=== PATIENT | male | born 1970 | race Caucasian/White ===

== ENCOUNTER → 2017-10-09 | Day surgery (SDC) | payer OTHER ==
[~2017-10-09] MED LIST: ACET-24 PO; ASPI-320 PO; CLARITIN D PO; CLB200 PO; CLC100 PO; DIPH1TAB87 PO; IBUP-1050 PO; NAPR1TAB9 PO; ONDA-170 PO; OXYM0.0592 INTNAS; RXC5 PO
[2017-10-09 13:06] VITALS: BMI 40.0
== END | disposition home or self-care (01) ==
LOC: C.RAD 13:45
PROVIDERS: ATTEND Orthopaedic Surgery
DX: Z53.09 Procedure and treatment not carried out because of other contraindication (principal)

== ENCOUNTER 2017-11-07 09:05 | Inpatient (IN) | payer OTHER ==
[2017-10-09 13:06] VITALS: BMI 40.0
--- NOTE | 2017-10-09 13:40 | PAT Medication Instructions ---
Service Date Oct 09, 2017. Current Home Medication List Diphenhydramine Hcl (Benadryl Allergy), 50 MG PO HS PRN for RN Ibuprofen (Advil), 800 MG PO PRN Oxymetazoline Hcl (Nasal Bluefield), 2 SPRAY INTNAS HS [Claritin D], 1 TAB PO QM Medication Instructions For Your Scheduled Surgery - Check with your surgeon for instructions for: Ibuprofen (Advil), 800 MG PO PRN - Hold the following medications the morning of surgery: Diphenhydramine Hcl (Benadryl Allergy), 50 MG PO HS PRN for RN [Claritin D], 1 TAB PO QM - Take the following medications as scheduled the night before surgery: Diphenhydramine Hcl (Benadryl Allergy), 50 MG PO HS PRN for RN (if needed) Oxymetazoline Hcl (Nasal Bluefield), 2 SPRAY INTNAS HS If you have any questions please call us at [phone] or [phone] or [phone]
--- NOTE | 2017-10-09 14:17 | DIAGNOSTIC IMAGING REPORT ---
CHEST 2 VIEWS ROUTINE CLINICAL HISTORY: 46 years-old Male presenting with preoperative assessment. TECHNIQUE: PA and lateral views of the chest were obtained. COMPARISON: None. FINDINGS: Cardiomediastinal silhouette normal. Lungs and pleural spaces clear. Osseous structures normal. Upper abdomen normal. IMPRESSION: 1. No acute cardiopulmonary disease. Electronically signed by: Calvin Gutierrez M.D. 10/09/2017 2:16 PM Dictated Date/Time: 10/09/2017 2:16 PM
[2017-10-09 15:39] LABS: BASO % 0.7 %; BASO ABS # 0.05 K/uL (0-0.2); EOS % 3.7 %; EOS ABS # 0.26 K/uL (0-0.5); HEMOGLOBIN 15.8 g/dL (14.0-18.0); IG# 0.01 K/uL (0.00-0.02); LYMPH ABS # 2.55 K/uL (1.2-3.4); MEAN CORPUSCULAR HEMOGLOBIN 32.3 pg (25-34); MEAN CORPUSCULAR HGB CONC 35.1 g/dl (32-36); MEAN PLATELET VOLUME 10.3 fL (7.4-10.4); MONO % 4.8 %; MONO ABS # 0.34 K/uL (0.11-0.59); NEUT % 54.7 %; NEUT ABS # 3.88 K/uL (1.4-6.5); PLATELET COUNT 215 K/uL (130-400); RED CELL DISTRIBUTION WIDTH CV 12.3 % (11.5-14.5); RED CELL DISTRIBUTION WIDTH SD 41.5 fL (36.4-46.3); WHITE BLOOD COUNT 7.09 K/uL (4.8-10.8)
[2017-10-09 15:46] LABS: ALBUMIN 4.2 gm/dl (3.4-5.0); CALCIUM 9.4 mg/dl (8.5-10.1); CREATININE 1.08 mg/dl (0.60-1.40); POTASSIUM 4.2 mmol/L (3.5-5.1)
[2017-10-09 15:48] LABS: PTT PATIENT 27.3 SECONDS (21.0-31.0)
[2017-10-10 06:39] LABS: HEMOGLOBIN A1C 5.1 % (4.5-5.6)
--- NOTE | 2017-10-29 08:24 | History and Physical ---
History & Physical Date Oct 29, 2017. Chief Complaint Left knee pain History of Present Illness The patient is a 46 year old male with complaints of left knee pain after traumatic fall. He previously had an ACL and PCL reconstruction as well as MPFL reconstruction. He also has arthritic changes of his knee. Surgical procedures were discussed with the patient. He would like to proceed with scheduled surgery. Allergies Coded Allergies: NO KNOWN DRUG ALLERGIES (Verified Allergy, Unknown, NONE, 10/09/17) Shellfish (Verified Allergy, Unknown, ANAPHYLAXIS, 10/09/17) Home Medications Scheduled Ibuprofen (Advil), 800 MG PO PRN Oxymetazoline Hcl (Nasal Winston), 2 SPRAY INTNAS HS [Claritin D], 1 TAB PO QM Scheduled PRN Diphenhydramine Hcl (Benadryl Allergy), 50 MG PO HS PRN for RN Physical Examination Skin: warm/dry, no rash Eyes: normal inspection, EOMI ENT: normal ENT inspection Head: normocephalic, atraumatic Neck: supple, no adenopathy Respiratory/Chest: lungs clear, normal breath sounds Cardiovascular: regular rate, rhythm, no murmur Abdomen / GI: normal bowel sounds, non tender Extremities: normal inspection, + pertinent finding (surgical scars note medially and distally. (+) Lachmans, patellar shift is (+) and apprehension, Limited ROM due to pain and instability) Neurologic/Psych: no motor/sensory deficits, alert, oriented x 3 Diagnosis Left knee ACL and MPFL tears with arthritic changes of the knee. Plan of Treatment Patient is scheduled for a left knee arthroplasty with achilles tendon allograft. Risks and benefits to surgery were discussed with the patient. He understands these risks and wishes to proceed. All questions were answered to his satisfaction. He will be placed on ASA 81mg BID for DVT prophylaxis and would like to go home with OPPT.
[2017-11-07] VITALS (9 sets, daily range): BP systolic 100–141; BP diastolic 62–96; PULSE 76–106; TEMP 36.7–37.4; O2SAT 92–95; Ht 175.3 cm; Wt 122.6 kg
[~2017-11-07] VITALS: Ht 175.3 cm; Wt 122.6 kg
[2017-11-07] MEDS: TRANEXAMIC ACID INJ 1,000 MG x 2 Bags IV SCH ×4 (06:30→11:25)
[~2017-11-07 09:05] MED LIST changes: -ACET-24 PO; +ACETAMINOPHEN 500 MG TAB PO SCH; -ASPI-320 PO; +BUPIVACAINE 0.25% 30 ML VIAL ONE; +BUPIVACAINE 0.5 % 5 MG/1 ML PF 10ML VIAL ONE; +CEFAZOLIN 3000MG IV PUSH 22.5 ML IV SCH; -CLB200 PO; -CLC100 PO; +CeleBREX 200 MG CAP PO SCH; +DEXAMETHASONE 4 MG TAB PO SCH; +FAMOTIDINE 20 MG TAB PO SCH; +GABAPENTIN 900 MG PO SCH; +LACTATED RINGER'S 1000ML 1,000 ML IV SCH; +LACTATED RINGER'S 1000ML 500 ML IV SCH; +METOCLOPRAMIDE HCL 10 MG TAB PO SCH; -NAPR1TAB9 PO; -ONDA-170 PO; +ROPIVACAINE 5MG/ML 30 ML 150 MG, BUPIVACAINE 0.5% MPF INJ 30 ML, EpINEphrine HCL INJ 0.... INFIL SCH; -RXC5 PO
[2017-11-07] MEDS ORDERED: NAPR1TAB9 PO (09:55)
--- NOTE | 2017-11-07 10:31 | History & Physical Bridge Note ---
H&P Re-Evaluation Bridge Note: I have examined the patient, reviewed the History & Physical and in the interval since the performance of the History & Physical I have noted the following changes of clinical significance: No changes noted
[2017-11-07] MEDS ORDERED: MIDAZOLAM HCL 1 MG/ML 2ML VIAL ONE ×3 (10:44→11:52)
[2017-11-07] MEDS ORDERED: POVIDONE-IODINE OP SOLN 30 ML BTL ONE (11:17)
[2017-11-07] MEDS ORDERED: BACITRACIN 50000 UNIT VIAL ONE (11:17)
[2017-11-07] MEDS ORDERED: ORTHO JOINT ANESTHETIC ONE (11:17)
[2017-11-07] MEDS ORDERED: KETAMINE HCL INJ 50 MG/ML 10 ML VIAL ONE (12:46)
[2017-11-07] MEDS ORDERED: LIDOCAINE HCL 2% 2 ML VIAL (20MG/ML) ONE (12:48)
[2017-11-07] MEDS ORDERED: PROPOFOL IV EMULSION 10 MG/ML 20 ML VIAL IV ONE (12:48)
--- NOTE | 2017-11-07 14:19 | [facility] Operative Report ---
Operative Report Operative Date Nov 07, 2017. Pre-Operative Diagnosis Left arthritis, s/p ACL, PCL, MPFL reconstructions Post-Operative Diagnosis same Procedure(s) Performed L TKA and removal of hardware tibia Surgeon Dr. Calvin Ortega Punchboard Filling Machine Operator Surgeon(s) Kareem Ragsdale PA-C Estimated Blood Loss 40 Findings incompetent MCL Specimens bone and tissue Drains 2 hemovac Anesthesia Type MAC Spinal Regional Complication(s) none Disposition Recovery Room / PACU Indications The patient is a 46-year-old male who had sustained a injury to the left knee skiing. He sustained a tear of the ACL, PCL, MCL, medial patellofemoral ligament. He had undergone staged reconstructions with ACL and PCL performed in 1 setting and MPFL reconstruction performed in another. At the time of arthroscopy for the patellar surgery his ACL and PCL reconstructions were noted to be re-torn. He subsequently had continued instability in the knee and in the patella as well as progressive arthritic change in the knee that was recalcitrant to conservative measures including injection, bracing, physical therapy. He is now [id number] in the medial compartment and wishes to proceed with a total knee arthroplasty. Description of Procedure Risks benefits and alternatives of surgery including but not limited to infection, DVT, pain, stiffness, need for surgery, damage to blood vessels, damage to nerves or risks of anesthesia were discussed with the patient and they wished to proceed. The patient was identified and the laterality was confirmed and marked. They received a preoperative antibiotic as well as a spinal anesthetic and an abductor canal block. A well-padded tourniquet was applied and then the limb was prepped and draped in standard manner with ChloraPrep. The limb was exsanguinated and the tourniquet was inflated. I made an incision along the anterior aspect of the knee just medial to the midline re-utilizing his previous incisions. I sharply incised the skin then utilized Bovie electrocautery to achieve hemostasis. I made a medial parapatellar arthrotomy and mobilized the patella laterally. I then excised the anterior horns of the medial and lateral meniscus as well as the infrapatellar fat pad. I dissected distally over the tibia and identified the 2 previous interference screws within the tibia one was for the ACL reconstruction the other was for the PCL reconstruction. These plastic interference screws were removed. I then pinned into place a patient-matched distal femoral cutting guide and made my distal femoral resection. I then pinned into place the 5 in 1 femoral cutting guide. I made my anterior, posterior and chamfer cuts. I then excised the cruciates and the remaining portions of the menisci. I then pinned into place a patient- matched tibial cutting guide and made my tibial resection. I then pinned into place the tibial plate a utilizing alignment harris to confirm rotation. I then cut for the post. Utilizing a lamina instructor hairspring and I then removed posterior osteophytes off the femur. I then placed a trial femur into position and cut for the trochlear component. He had rather extreme soft tissue laxity. 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 We needed to up size to size 21 to get appropriate stability to the MCL in both extension as well as in flexion. However this point he was a bit of a flexion contracture. I remove the femoral component and released the posterior capsule. I then replaced the femoral component. We had better balancing at this point but we still had poor tracking to the patella. A lateral release was required. This seemed to both give us appropriate tracking to the patella as well as increase our extension. He had pretty good stability with the 21 poly-constraint. I then removed the trial femur and trial patella. I then sequentially reamed up to a size [address] a tibial stem component into position. I had preoperatively templated that A1 100 mm stem would be long enough to cover the regions of his previous interference screws. All the trial components were removed. The deep tissues were anesthetized with an ortho mix solution. Then with Simplex HV with gentamicin cement, I cemented my definitive components. Definitive components, [employer] 2: Femur 6 Tibia 5 with a stem of 16 x 100 mm Poly 21 constrained Patella 32 oval No Betadine soak was performed secondary to shellfish allergy. A deep drain was placed. The arthrotomy was closed with interrupted #1 Vicryl suture subcutaneous tissue was closed with interrupted 2-0 Vicryl suture. The skin was closed with with mercedes. A Silverlon was placed. Sterile dressings were applied. All needle and sponge counts were correct at the end of the procedure patient was transferred to the PACU in stable condition without apparent complication. The PA-C was necessary for assistance with procedure for assistance in positioning, prepping, draping, retraction and closure. I attest to the content of the Intraoperative Record and any orders documented therein. Any exceptions are noted below.
[2017-11-07] MEDS ORDERED: ALUMINUM/MAGNESIUM/SIMETH (MAALOX MAX) 30 ML UDC PO PRN (14:45)
[2017-11-07] MEDS ORDERED: TRAMADOL HCL 50 MG TAB PO PRN (14:45)
[2017-11-07] MEDS ORDERED: BISACODYL 10 MG SUPP PR PRN (14:45)
[2017-11-07] MEDS ORDERED: ONDANSETRON INJ 2 MG/ML 2 ML VIAL IV PRN (14:45)
[2017-11-07] MEDS ORDERED: MAGNESIUM HYDROXIDE SUSP 30 ML UDC PO PRN (14:45)
[2017-11-07] MEDS ORDERED: MoRPHine SULFATE 4 MG/ML 1 ML CARP\\VIAL IV PRN (14:45)
[2017-11-07] MEDS ORDERED: CEFAZOLIN IV 2,000 MG in DEXTROSE 5% 50ML 50 ML IV SCH (14:45)
--- NOTE | 2017-11-07 15:09 | DIAGNOSTIC IMAGING REPORT ---
L KNEE 1 OR 2 VIEWS ROUTINE HISTORY: 46 years-old Male AP/LATERAL IN PACU LEFT KNEE status post left knee total joint arthroplasty. Degenerative joint disease COMPARISON: None available TECHNIQUE: 2 views of the left knee FINDINGS: Postoperative changes from recent left knee total joint arthroplasty with patellar resurfacing. Anterior midline skin mercedes are noted along with expected postsurgical soft tissue swelling and deep tissue air with surgical drain in place. Alignment is satisfactory. No periprosthetic fracture or retained foreign body identified. IMPRESSION: Left knee total joint arthroplasty and patellar resurfacing without complication identified. The above report was generated using voice recognition software. It may contain grammatical, syntax or spelling errors. Electronically signed by: Edison Thomas M.D. 11/07/2017 3:07 PM Dictated Date/Time: 11/07/2017 3:06 PM
--- NOTE | 2017-11-07 15:11 | Anesthesiology Progress Note ---
Anesthesia Post Op Note Date & Time Nov 07, 2017 at 15:11 Vital Signs Pain Intensity: 0 Vital Signs Past 12 Hours Date Time Temp Pulse Resp B/P (MAP) Pulse Ox O2 Delivery O2 Flow Rate FiO2 11/07/17 15:05 85 20 139/73 93 Room Air 11/07/17 14:55 84 16 119/87 93 Room Air 11/07/17 14:45 84 16 135/84 92 Room Air 11/07/17 14:36 36.2 93 22 139/89 97 Room Air 11/07/17 09:38 37.4 76 18 141/96 95 Room Air Notes Mental Status: alert / awake / arousable, participated in evaluation Pt Amnestic to Procedure: Yes Nausea / Vomiting: adequately controlled Pain: adequately controlled Airway Patency, RR, SpO2: stable & adequate BP & HR: stable & adequate Hydration State: stable & adequate Anesthetic Complications: no major complications apparent
[2017-11-07] MEDS: OXYCODONE HCL IR 5 MG TAB (IMMEDIATE RELEASE) PO PRN (16:42)
[2017-11-07] MEDS: D5W AND 1/2NSS + 20MEQ KCL 1,000 ML IV SCH (18:22)
[2017-11-07] MEDS: FERROUS GLUCONATE 324 MG TAB PO SCH (18:22)
[2017-11-07] MEDS: CEFAZOLIN IV 2,000 MG in SYRINGE 0 ML IV SCH (20:50)
[2017-11-07] MEDS: OXYMETAZOLINE HCL 0.05% NA SPR 15 ML BTL SCH (20:51)
[2017-11-07] MEDS: DOCUSATE SODIUM 100 MG CAP PO SCH (20:56)
[2017-11-07] MEDS: SENNA 8.6 MG TAB PO SCH (20:57)
[2017-11-07] MEDS: ASPIRIN 81 MG ECTAB PO SCH (20:57)
[2017-11-07] MEDS: CeleBREX 200 MG CAP PO SCH (20:57)
[2017-11-07] MEDS: ACETAMINOPHEN 500 MG TAB PO SCH (22:31)
[2017-11-08] MEDS: OXYCODONE HCL IR 5 MG TAB (IMMEDIATE RELEASE) PO PRN ×4 (01:12→22:00)
[2017-11-08] MEDS: D5W AND 1/2NSS + 20MEQ KCL 1,000 ML IV SCH (02:50)
[2017-11-08 04:10] VITALS: BP 91/57; PULSE 64; TEMP 36.6; O2SAT 94
[2017-11-08] MEDS: CEFAZOLIN IV 2,000 MG in SYRINGE 0 ML IV SCH (04:10)
[2017-11-08] MEDS: ACETAMINOPHEN 500 MG TAB PO SCH ×3 (05:54→21:45)
[2017-11-08 06:02] LABS: HEMOGLOBIN 13.4 g/dL (14.0-18.0); MEAN CELL VOLUME 90.7 fL (80-100); MEAN CORPUSCULAR HGB CONC 35.3 g/dl (32-36); MEAN PLATELET VOLUME 10.2 fL (7.4-10.4); PLATELET COUNT 234 K/uL (130-400); RED CELL DISTRIBUTION WIDTH CV 12.8 % (11.5-14.5); WHITE BLOOD COUNT 15.12 K/uL (4.8-10.8)
--- NOTE | 2017-11-08 06:02 | Orthopedic Progress Note ---
Orthopedic Progress Note Date of Service Nov 08, 2017. Subjective Post OP Day: 1 Reports: feeling well, pain controlled w PO medications, Denies: complaints, chest pain, SOB, nausea / vomiting, light headedness, calf pain Additional Notes: N/V last evening, resolved this am. Objective calves soft nontender, N/V intact, capillary refill less than 2 sec., dressing C /D/I, A&O x3, toes mobile, hemovac drainage (175cc/8 hours) Date Time Temp Pulse Resp B/P (MAP) Pulse Ox O2 Delivery O2 Flow Rate FiO2 11/08/17 04:10 36.6 64 18 91/57 (68) 94 Room Air 11/08/17 00:30 Room Air 11/07/17 23:05 36.8 83 18 100/62 (75) 95 Room Air 11/07/17 18:38 36.9 106 18 125/80 (95) 92 Room Air 11/07/17 17:30 37.0 95 18 138/80 (99) 94 Room Air 11/07/17 16:30 36.9 96 18 141/82 (101) 94 Room Air 11/07/17 16:00 37.1 89 16 140/93 (109) 95 Room Air 11/07/17 15:31 94 Room Air 11/07/17 15:30 95 Room Air 11/07/17 15:27 36.7 84 18 133/89 (104) 95 Room Air 11/07/17 15:15 88 19 139/90 92 Room Air 11/07/17 15:05 36.7 85 20 139/73 93 Room Air 11/07/17 14:55 84 16 119/87 93 Room Air 11/07/17 14:45 84 16 135/84 92 Room Air 11/07/17 14:36 36.2 93 22 139/89 97 Room Air 11/07/17 09:38 37.4 76 18 141/96 95 Room Air Laboratory Results 24 Hours: Test 11/08/17 05:09 Assessment & Plan Assessment: POD #1 s/p Left TKA pt/ot dvt proph with kathleen/scd/asa plan for dc home with OPPT @ [facility] Discharge Planning Discharge Planning: home with oppt DVT Prophylaxis: TEDs, SCDs, ASA
--- NOTE | 2017-11-08 06:03 | Discharge Instructions ---
Discharge Instructions Date of Service Nov 08, 2017. Admission Reason for Admission: Left Knee Osteoarthritis Discharge Discharge Diagnosis / Problem: left total knee replacement Discharge Goals Goal(s): Decrease discomfort, Improve function, Increase independence Activity Recommendations Activity Limitations: as noted below Weightbearing Status: Left weightbearing (as tolerated) . Instructions / Follow-Up Instructions / Follow-Up ACTIVITY RECOMMENDATIONS: SELF CARE INSTRUCTIONS AFTER TOTAL KNEE REPLACEMENT A. You may need to continue a physical therapy program after discharge from the hospital. There are several options available to you. Your doctor will assist you in selecting the best one for you. 1. An out-patient facility 2 to 3 times a week for therapy or home therapy. 2. Continue working on all exercises taught to you in the hospital. Your goals should be to increase bending of your knee to 90 degrees and beyond and to fully straighten your knee. B. You may progress at your own pace from walking with a walker or crutches to a cane; then to no assistive devices. C. Make walking a part of your daily routine. Be up as much as comfortable with rest periods throughout the day. Rest with leg elevation is very important. Use the ice wrap frequently for the first 3-4 weeks. D. There are no restrictions on activities. You may ride in a car, shop, participate in bearing machine operator and all social activities. E. Wear the long elastic stockings (ANDI hose) 20 hours a day for 2 weeks after surgery. They can be removed several times a day for laundering and for a bath. F. You may shower, no tub baths until cleared by your doctor. SPECIAL CARE INSTRUCTIONS: VERY IMPORTANT TO READ AND REVIEW A. There are a few signs you need to watch for after you are home. [facility] [place] if you notice any of the followin. Increased severe knee pain. Some pain is expected especially when you exercise. 2. Increased swelling in your leg or knee; pain or swelling of the calf muscle in either lower leg. 3. Any fluid drainage from the incision. 4. Shortness of breath or chest pain. B. Please call [facility] at if you have any concerns or questions about your operation or recovery. The doctor or his nurse will return your call promptly. C. You must take antibiotics before dental work, bladder, bowel or other surgery. Your doctor will provide you with a permanent care to carry describing this precaution. IMPORTANT: * REMEMBER TO TAKE ASPIRIN, 81 MG, TWICE DAILY FOR 4 WEEKS UNLESS OTHERWISE DIRECTED. THIS IS YOUR BLOOD THINNER. * HIGH RISK PATIENTS MAY BE PRESCRIBED A STRONGER BLOOD THINNER. THIS WILL BE PROVIDED AT DISCHARGE. * CALL IF INCREASED PAIN, REDNESS, DRAINAGE OR FEVER GREATER THAT 101. * WEAR ANDI HOSE 20 HOURS PER DAY FOR 2 WEEKS. * YOU MAY HAVE A LARGE BAND-AID LIKE DRESSING (SILVERON). THIS WILL REMAIN ON YOUR INCISION FOR 7 DAYS, THEN CAN BE REMOVED. IF INCISION IS LEAKING THROUGH DRESSING, CALL THE OFFICE . FOLLOW UP VISIT: If appointment is not already scheduled: Please call [facility] [place] to make a follow-up appointment for 2 weeks after your surgery at . Current Hospital Diet Patient's current hospital diet: Regular Diet Discharge Diet Recommended Diet: Regular Diet Procedures Procedures Performed: L TKA and removal of hardware tibia Pending Studies Studies pending at discharge: no Laboratory Results Hemoglobin A1c Test 10/09/17 13:49 Range/Units Estimated Average Glucose 100 mg/dl Hemoglobin A1c 5.1 4.5-5.6 % Medical Emergencies . Who to Call and When: Medical Emergencies: If at any time you feel your situation is an emergency, please call [phone] immediately. . Non-Emergent Contact Non-Emergency issues call your: Primary Care Provider, Surgeon . "Provider Documentation" section prepared by Chris Grant. . [place] Drug Monitoring Program Search Results: patient reviewed within database, no issues identified
[2017-11-08] MEDS ORDERED: CLC100 PO (06:08)
[2017-11-08] MEDS ORDERED: ASPI-320 PO (06:08)
[2017-11-08] MEDS ORDERED: RXC5 PO (06:08)
[2017-11-08] MEDS ORDERED: ACET-24 PO (06:08)
[2017-11-08] MEDS ORDERED: CLB200 PO (06:08)
[2017-11-08] MEDS ORDERED: ONDA-170 PO (06:08)
[2017-11-08 06:41] LABS: CALCIUM 8.6 mg/dl (8.5-10.1); CREATININE 1.17 mg/dl (0.60-1.40); POTASSIUM 4.1 mmol/L (3.5-5.1)
[2017-11-08 07:08] VITALS: BP 110/69; PULSE 62; TEMP 36.5; O2SAT 96
[2017-11-08] MEDS: ASPIRIN 81 MG ECTAB PO SCH ×2 (09:24→21:45)
[2017-11-08] MEDS: DOCUSATE SODIUM 100 MG CAP PO SCH ×2 (09:24→21:45)
[2017-11-08] MEDS: MULTIVITAMIN TAB PO SCH (09:24)
[2017-11-08] MEDS: CeleBREX 200 MG CAP PO SCH ×2 (09:25→21:45)
[2017-11-08] MEDS: FERROUS GLUCONATE 324 MG TAB PO SCH ×3 (09:25→18:11)
[2017-11-08] MEDS ORDERED: NURSING VERBAL MED ORDER ONE (11:00)
[2017-11-08 11:33] VITALS: BP 109/65; PULSE 67; TEMP 36.7; O2SAT 96
[2017-11-08 15:23] VITALS: BP 128/79; PULSE 75; TEMP 36.7; O2SAT 95
[2017-11-08] MEDS: OXYMETAZOLINE HCL 0.05% NA SPR 15 ML BTL SCH (21:44)
[2017-11-08] MEDS: SENNA 8.6 MG TAB PO SCH (22:00)
[2017-11-08 23:35] VITALS: BP 126/74; PULSE 79; TEMP 36.9; O2SAT 96
[2017-11-09] MEDS: ACETAMINOPHEN 500 MG TAB PO SCH (05:52)
--- NOTE | 2017-11-09 06:21 | Orthopedic Progress Note ---
Orthopedic Progress Note Date of Service Nov 09, 2017. Subjective Post OP Day: 2 Reports: feeling well, pain controlled w PO medications, Denies: complaints, chest pain, SOB, nausea / vomiting, light headedness, calf pain Objective calves soft nontender, N/V intact, capillary refill less than 2 sec., incision C /D/I, A&O x3, toes mobile Date Time Temp Pulse Resp B/P (MAP) Pulse Ox O2 Delivery O2 Flow Rate FiO2 11/08/17 23:40 Room Air 11/08/17 23:35 36.9 79 18 126/74 (91) 96 Room Air 11/08/17 19:04 Room Air 11/08/17 15:23 36.7 75 16 128/79 (95) 95 Room Air 11/08/17 11:33 36.7 67 16 109/65 (80) 96 Room Air 11/08/17 08:00 Room Air 11/08/17 07:08 36.5 62 16 110/69 (83) 96 Room Air Assessment & Plan Assessment: POD #2 s/p Left TKA pt/ot dvt proph with kathleen/scd/asa plan for dc home with OPPT @ [facility] Discharge Planning Discharge Planning: home with oppt DVT Prophylaxis: TEDs, SCDs, ASA
[2017-11-09 06:55] VITALS: BP 135/83; PULSE 81; TEMP 36.8; O2SAT 97
[2017-11-09 06:58] VITALS: BP 135/83; PULSE 81; TEMP 36.8; O2SAT 97
[2017-11-09] MEDS: FERROUS GLUCONATE 324 MG TAB PO SCH (07:37)
[2017-11-09] MEDS: MULTIVITAMIN TAB PO SCH (07:37)
[2017-11-09] MEDS: OXYCODONE HCL IR 5 MG TAB (IMMEDIATE RELEASE) PO PRN ×2 (07:38→12:54)
[2017-11-09] MEDS: ASPIRIN 81 MG ECTAB PO SCH (08:06)
[2017-11-09] MEDS: CeleBREX 200 MG CAP PO SCH (08:06)
[2017-11-09] MEDS: DOCUSATE SODIUM 100 MG CAP PO SCH (08:06)
--- NOTE | 2017-11-10 16:20 | DISCHARGE SUMMARY ---
DISCHARGE DIAGNOSIS: Degenerative joint disease, left knee. CONSULTS: None. COMPLICATIONS: None. PROCEDURES: Left total knee arthroplasty and removal of hardware from the tibia by Dr. Ortega on 11/07/2017. BRIEF HISTORY: As dictated in history and physical. HOSPITAL SUMMARY: The patient was admitted on the above date and had the above-noted surgery performed which he tolerated well. On the first postoperative day, he was feeling well, pain was controlled. He had no complaints. He had some nausea and vomiting the previous evening which had resolved by that morning. Calves were soft, nontender, neurovascularly intact. Dressing was clean, dry, and intact. Toes were mobile. Vital signs were stable and he was afebrile. Hemoglobin was 13.4. He was started on physical therapy protocol and continued on DVT prophylaxis and pain management. By his second postoperative day, he was continued to feel well and had no complaints. Calves were soft, nontender, neurovascularly intact. The incision was clean, dry, and intact. Toes were mobile and vital signs were stable. He was afebrile. He was progressing well with his physical therapy and it was felt he could be discharged to home and to progress with outpatient PT on 11/09/2017. For further review, please see chart. LABORATORY AND X-RAY DATA: As per chart. DISCHARGE INSTRUCTIONS: The patient was discharged to home in satisfactory condition on 11/09/2017. DIET: Regular. ACTIVITY: Weightbearing as tolerated on left lower extremity. Follow TK instruction sheets and special care instructions as noted and follow up with Dr. Ortega in 2 weeks. DISCHARGE MEDICATIONS: Acetaminophen 1000 mg p.o. every 8 hours, aspirin 81 mg p.o. b.i.d., Celebrex 200 mg p.o. b.i.d. for 30 days, Colace 100 mg p.o. b.i.d., Zofran 8 mg p.o. every 8 hours p.r.n. nausea, oxycodone 5-10 mg p.o. every 4 hours p.r.n., resume home meds as listed and stop taking ibuprofen and naproxen.
== END 2017-11-09 13:05 | disposition home or self-care (01) | DRG 470 ==
LOC: C.ACU 09:05 → C.3E 11:40 → ENRESERV 15:09
PROVIDERS: ADMIT Orthopaedic Surgery; ATTEND Orthopaedic Surgery
PROC: 0SRD0J9 Replacement of Left Knee Joint with Synthetic Substitute, Cemented, Open Approach (ICD-10-PCS; principal; 2017-11-07 11:15)
PROC: 0LP Tendons, Removal (ICD-10-PCS; principal; 2017-11-07 11:15)
DX: M17.12 Unilateral primary osteoarthritis, left knee (principal); Z79.899 Other long term (current) drug therapy; Z98.890 Other specified postprocedural states; Z91.013 Allergy to seafood